=== PATIENT | male | born 1985 | race American Indian/Alaskan Native ===

== ENCOUNTER 2019-03-12 10:00 | Observation (INO) | payer SELFPAY ==
[2019-03-12 11:07] LABS: Bilirubin,Urine NEG (Negative); Blood,Urine NEG (Negative); Color,Urine Yellow (Yellow); Mucus,Urine FEW /HPF
[2019-03-12] MEDS ORDERED: ZOFRAN IV ONE (11:14)
[2019-03-12] MEDS ORDERED: SUBLIMAZE IV ONE ×2 (11:14→13:55)
--- NOTE | 2019-03-12 11:19 | Emergency Department Report ---
HPI - General Chief Complaint: Abdominal Pain Time Seen by Provider: 03/12/19 11:04 - [facility] HPI: Room 8 The patient is a 34-year-old male presenting with a chief complaint abdominal pain and needing alcohol detox. Patient states yesterday he began having symptoms he believes are secondary to alcohol withdrawal which include lower abdominal pain, itchy, chest pain, nausea and vomiting. Patient states his abdominal pain is constant. Patient admits to nausea and vomiting but denies diarrhea. Patient states he's had excessive flatus and a subjective fever. Patient currently gives his abdominal pain score 10/10 Location: [See above] Duration: [See above] Quality: [See above] Severity: [See above] Modifying factors: [see above] Context: [see above] Mode of transportation: [not driving] ED Past Medical Hx - Past Medical History Previous Medical History?: Yes Hx Hypertension: Yes Hx HIV: Yes (last CD4 count normal summer 2018) - Surgical History Past Surgical History?: Yes Additional Surgical History: colostomy with reversal secondary to "polyps" per patient - Family History Family history: no significant - Social History Smoking Status: Current Some Day Smoker (rarely) Substance Use Type: Alcohol (bottle of vodka daily), Methamphetamines ED Review of Systems ROS: Stated complaint: ALCOHOL DETOX Other details as noted in HPI Constitutional: fever (subjective) Eyes: other (itchy eyes) ENT: denies: throat pain Respiratory: no symptoms reported Cardiovascular: chest pain Endocrine: no symptoms reported Gastrointestinal: abdominal pain, nausea, vomiting. denies: diarrhea Genitourinary: denies: dysuria Musculoskeletal: denies: back pain Neurological: denies: headache Physical Exam - Physical Exam Vital Signs: Vital Signs 03/12/19 10:14 Temperature 98.1 F Pulse Rate 73 Respiratory 16 Rate Blood Pressure 146/103 Blood Pressure 143/103 [Left] O2 Sat by Pulse 97 Oximetry Physical Exam: GENERAL: The patient is well-developed well-nourished male lying on stretcher using cell phone appeared to be in acute distress. [] HEENT: Normocephalic. Atraumatic. Extraocular motions are intact. Patient has moist mucous membranes. NECK: Supple. No meningitic signs are noted. Trachea midline CHEST/LUNGS: Clear to auscultation. There is no respiratory distress noted. HEART/CARDIOVASCULAR: Regular. There is no tachycardia. There is no gallop rub or murmur. ABDOMEN: Abdomen is soft, with discomfort to palpation in the left upper quadrant, right upper quadrant and right lower quadrant. Patient has normal bowel sounds. There is no abdominal distention. SKIN: There is no rash. There is no edema. There is no diaphoresis. NEURO: The patient is awake, alert, and oriented. The patient is cooperative. The patient has no focal neurologic deficits. The patient has normal speech MUSCULOSKELETAL: There is no evidence of acute injury. ED Course Vital Signs 03/12/19 10:14 Temperature 98.1 F Pulse Rate 73 Respiratory 16 Rate Blood Pressure 146/103 Blood Pressure 143/103 [Left] O2 Sat by Pulse 97 Oximetry ED Medical Decision Making - Lab Data Result diagrams: 03/12/19 10:36 03/12/19 10:36 Laboratory Tests 03/12/19 03/12/19 03/12/19 10:36 10:36 10:56 WBC 3.2 L RBC 4.64 Hgb 14.2 Hct 43.9 MCV 95 H MCH 31 MCHC 32 RDW 17.0 H Plt Count 188 Lymph % (Auto) [place] Operator Add Manual Diff Complete Total Counted 100 Seg Neutrophils % [place] Operator Seg Neuts % (Manual) 23.0 L Band Neutrophils % 0 Lymphocytes % (Manual) 71.0 H Reactive Lymphs % (Man) 2.0 Monocytes % (Manual) 3.0 Eosinophils % (Manual) 0 Basophils % (Manual) 1.0 Metamyelocytes % 0 Myelocytes % 0 Promyelocytes % 0 Blast Cells % 0 Nucleated RBC % Not Reportable Seg Neutrophils # Man 0.7 L Band Neutrophils # 0.0 Lymphocytes # (Manual) 2.3 Abs React Lymphs (Man) 0.1 Monocytes # (Manual) 0.1 Eosinophils # (Manual) 0.0 Basophils # (Manual) 0.0 Metamyelocytes # 0.0 Myelocytes # 0.0 Promyelocytes # 0.0 Blast Cells # 0.0 WBC Morphology Not Reportable Hypersegmented Neuts Not Reportable Hyposegmented Neuts Not Reportable Hypogranular Neuts Not Reportable Smudge Cells Not Reportable Toxic Granulation Not Reportable Toxic Vacuolation Not Reportable Dohle Bodies Not Reportable Pelger-Huet Anomaly Not Reportable Justin Rods Not Reportable Platelet Estimate Consistent w auto Clumped Platelets Not Reportable Plt Clumps, EDTA Not Reportable Large Platelets Not Reportable Giant Platelets Not Reportable Platelet Satelliting Not Reportable Plt Morphology Comment Not Reportable RBC Morphology Not Reportable Dimorphic RBCs Not Reportable Polychromasia Not Reportable Hypochromasia Few Poikilocytosis Not Reportable Anisocytosis Not Reportable Microcytosis Not Reportable Macrocytosis Not Reportable Spherocytes Not Reportable Pappenheimer Bodies Not Reportable Sickle Cells Not Reportable Target Cells 1+ Tear Drop Cells Not Reportable Ovalocytes Not Reportable Helmet Cells Not Reportable Thompson-[place] Bodies Not Reportable [place] Rings Not Reportable Ensign Cells Not Reportable Bite Cells Not Reportable Crenated Cell Not Reportable Elliptocytes Not Reportable Acanthocytes (Spur) Not Reportable Rouleaux Not Reportable Hemoglobin C Crystals Not Reportable Schistocytes Not Reportable Malaria parasites Not Reportable Brandyn Bodies Not Reportable Hem Pathologist Commnt No Sodium 141 Potassium 4.5 Chloride 101.9 Carbon Dioxide 24 Anion Gap 20 BUN 5 L Creatinine 0.9 Estimated GFR > 60 BUN/Creatinine Ratio 6 Glucose 95 Calcium 8.7 Total Bilirubin 0.40 AST 201 H ALT 87 H Alkaline Phosphatase 71 Total Creatine Kinase CK-MB (CK-2) CK-MB (CK-2) Rel Index Troponin T Total Protein 8.1 Albumin 3.8 L Albumin/Globulin Ratio 0.9 Lipase Urine Color Yellow Urine Turbidity Clear Urine pH 6.0 Ur Specific [place] 1.016 Urine Protein 100 mg/dl Urine Glucose (UA) Neg Urine Ketones Neg Urine Blood Neg Urine Nitrite Neg Urine Bilirubin Neg Urine Urobilinogen 4.0 Ur Leukocyte Esterase Neg Urine WBC (Auto) 2.0 Urine RBC (Auto) 2.0 U Epithel Cells (Auto) < 1.0 Urine Mucus Few Plasma/Serum Alcohol 03/12/19 03/12/19 03/12/19 11:07 11:07 11:21 WBC RBC Hgb Hct MCV MCH MCHC RDW Plt Count Lymph % (Auto) Add Manual Diff Total Counted Seg Neutrophils % Seg Neuts % (Manual) Band Neutrophils % Lymphocytes % (Manual) Reactive Lymphs % (Man) Monocytes % (Manual) Eosinophils % (Manual) Basophils % (Manual) Metamyelocytes % Myelocytes % Promyelocytes % Blast Cells % Nucleated RBC % Seg Neutrophils # Man Band Neutrophils # Lymphocytes # (Manual) Abs React Lymphs (Man) Monocytes # (Manual) Eosinophils # (Manual) Basophils # (Manual) Metamyelocytes # Myelocytes # Promyelocytes # Blast Cells # WBC Morphology Hypersegmented Neuts Hyposegmented Neuts Hypogranular Neuts Smudge Cells Toxic Granulation Toxic Vacuolation Dohle Bodies Pelger-Huet Anomaly Justin Rods Platelet Estimate Clumped Platelets Plt Clumps, EDTA Large Platelets Giant Platelets Platelet Satelliting Plt Morphology Comment RBC Morphology Dimorphic RBCs Polychromasia Hypochromasia Poikilocytosis Anisocytosis Microcytosis Macrocytosis Spherocytes Pappenheimer Bodies Sickle Cells Target Cells Tear Drop Cells Ovalocytes Helmet Cells Thompson-White[place] Bodies [place] Rings Karel Cells Bite Cells Crenated Cell Elliptocytes Acanthocytes (Spur) Rouleaux Hemoglobin C Crystals Schistocytes Malaria parasites Brandyn Bodies Hem Pathologist Commnt Sodium Potassium Chloride Carbon Dioxide Anion Gap BUN Creatinine Estimated GFR BUN/Creatinine Ratio Glucose Calcium Total Bilirubin AST ALT Alkaline Phosphatase Total Creatine Kinase 465 H CK-MB (CK-2) 3.1 CK-MB (CK-2) Rel Index 0.6 Troponin T < 0.010 Total Protein Albumin Albumin/Globulin Ratio Lipase 106 H Urine Color Urine Turbidity Urine pH Ur Specific [place] Urine Protein Urine Glucose (UA) Urine Ketones Urine Blood Urine Nitrite Urine Bilirubin Urine Urobilinogen Ur Leukocyte Esterase Urine WBC (Auto) Urine RBC (Auto) U Epithel Cells (Auto) Urine Mucus Plasma/Serum Alcohol 0.38 H - EKG Data -: EKG Interpreted by Ct EKG shows normal: sinus rhythm Rate: normal - EKG Data When compared to previous EKG there are: previous EKG unavailable Interpretation: other (no ischemic changes seen) - Radiology Data Radiology results: report reviewed (CT abdomen and pelvis), image reviewed (CT abdomen and pelvis) [address] [address] Cat Scan Report Signed Patient: SANNA CRUM MR#: [id number] : 1985 Acct:[id number] Age/Sex: 34 / M ADM Date: 03/12/19 Loc: ED Attending Dr: Ordering Physician: RICARDO VANESSA MD Date of Service: 03/12/19 Procedure(s): CT abdomen pelvis w con Accession Number(s): [id number] cc: RICARDO VANESSA MD PROCEDURE: CT ABDOMEN PELVIS W CON TECHNIQUE: Computerized axial tomography of the abdomen and pelvis was performed after the administration of IV iodinated nonionic contrast. HISTORY: lower abdominal pain nausea vomiting COMPARISONS: None . FINDINGS: Lower Lung rodriguez: Minimal dependent atelectasis otherwise clear. Upper Abdomen: Low-density diffusely decreased consistent with fatty infiltration. No discrete liver lesions are identified. The gallbladder showed no adenopathy. The adrenal glands, pancreas and spleen are unremarkable. Kidneys, Ureters and Urinary bladder: No abnormalities are seen. Retroperitoneum: Abdominal aorta appears normal. Nonspecific subcentimeter lymph nodes are seen in the retroperitoneum. No pathologically enlarged lymph nodes are identified. Bowel: No focal abnormalities are seen. No evidence of bowel obstruction, ascites or free intraperitoneal gas. The appendix is not clearly identified. There is no inflammatory changes seen in the right lower quadrant suggest appendicitis. The cecum projects into the lower pelvis, normal variant. Reproductive organs: Prostate gland does not appear to be enlarged. Other: No acute bone abnormalities are identified. IMPRESSION: Fatty infiltration of the liver. No acute abnormalities are identified. This document is electronically signed by Vernon Sol MD., March 12 2019 02:27:01 PM ET Transcribed By: DFN Dictated By: VERNON SOL MD Electronically Authenticated By: VERNON SOL MD Signed Date/Time: 03/12/19 1429 DD/ 1326 TD/TT: 03/12/19 1326 - Differential Diagnosis gastritis, pancreatitis, GERD Critical care attestation.: If time is entered above; I have spent that time in minutes in the direct care of this critically ill patient, excluding procedure time. ED Disposition Clinical Impression: Acute pancreatitis, Acute abdominal pain, Chest pain, Alcohol abuse Disposition: OP ADMIT IP TO THIS HOSP Is pt being admited?: Yes Does the pt Need Aspirin: Yes Condition: Fair Instructions: Chest Pain (ED) Referrals: KEISHA LAWTON MD [Primary Care Provider] - 3-5 Days Time of Disposition: 15:10 (hospitalist paged (Dr Riddle))
[2019-03-12 11:22] LABS: Hematocrit 43.9 % (35.5-45.6); Hemoglobin 14.2 gm/dl (11.8-15.2); Mean Corpuscular HGB Conc 32 % (32-34); Mean Corpuscular Volume 95 fl (84-94); Platelet Count 188 K/mm3 (140-440); Red Blood Count 4.64 M/mm3 (3.65-5.03)
[2019-03-12 12:24] LABS: Creatine Kinase MB 3.1 ng/mL (0.0-4.0)
[2019-03-12 12:46] LABS: Alanine Aminotransferase 87 units/L (7-56); Albumin 3.8 g/dL (3.9-5); BUN/Creatinine Ratio 6; Blood Urea Nitrogen 5 mg/dL (9-20); Calcium 8.7 mg/dL (8.4-10.2); Hemolysis Index 89
[2019-03-12] MEDS ORDERED: MAGNESIUM SULFATE 2GM/50ML 2 GM/50 ML BAG IV ONE (13:23)
[2019-03-12 13:44] LABS: Eosinophils % (Manual) 0 % (0.0-4.3); Total Cells Counted 100
[2019-03-12 13:45] LABS: Hypochromasia Few; Target Cells 1+
[2019-03-12 13:46] LABS: Platelet Estimate Consistent w Auto
[2019-03-12] MEDS ORDERED: MORPHINE IV ONE (13:55)
[2019-03-12] MEDS ORDERED: MORPHINE ONE (13:59)
[2019-03-12] MEDS ORDERED: VITAMIN B-1 100 MG, FOLVITE 1 MG, INFUVITE 10 ML in NACL 0.9% 1000 ML 1,000 ML IV ONE (14:00)
--- NOTE | 2019-03-12 14:29 | Cat Scan Report ---
PROCEDURE: CT ABDOMEN PELVIS W CON TECHNIQUE: Computerized axial tomography of the abdomen and pelvis was performed after the administr ation of IV iodinated nonionic contrast. HISTORY: lower abdominal pain nausea vomiting COMPARISONS: None . FINDINGS: Lower Lung rodriguez: Minimal dependent atelectasis otherwise clear. Upper Abdomen: Low-density diffusely decreased consistent with fatty infiltration. No discrete liver lesions are identified. The gallbladder showed no adenopathy. The adrenal glands, pancreas and splee n are unremarkable. Kidneys, Ureters and Urinary bladder: No abnormalities are seen. Retroperitoneum: Abdominal aorta appears normal. Nonspecific subcentimeter lymph nodes are seen in the retroperitoneum. No pathologically enlarged ly mph nodes are identified. Bowel: No focal abnormalities are seen. No evidence of bowel obstruction, ascites or free intraperit henry gas. The appendix is not clearly identified. There is no inflammatory changes seen in the right lower quadrant suggest appendicitis. The cecum projects into the lower pelvis, normal variant. Reproductive organs: Prostate gland does not appear to be enlarged. Other: No acute bone abnormalities are identified. IMPRESSION: Fatty infiltration of the liver. No acute abnormalities are identified. This document is electronically signed by Vernon Dahl MD., March 12 2019 02:27:01 PM ET
[2019-03-12] MEDS ORDERED: REGLAN IV ONE (14:45)
[2019-03-12] MEDS ORDERED: REGLAN ONE (14:48)
--- NOTE | 2019-03-12 15:53 | Event Note ---
Date: 03/12/19 34 YO Male presents to ED for evaluation. Pt found to have ETOH Intoxication without delirium or symptoms of withdrawl. Pt resting comfortably. Pt does not meet criteria for admission. Pt treated with IVF resuscitation therapy, Thiamine, Folic Acid, Multivitamin. Pt discharged home and instructed to f/u pcp 3-5 days, and to attend AA meeting at discharge. ETOH Cessation counseling:+15minutes GENERAL: The patient is well-developed well-nourished male lying on stretcher using cell phone appeared to be in no acute distress. [] HEENT: Normocephalic. Atraumatic. Extraocular motions are intact. PERRL, EOMI Patient has moist mucous membranes. NECK: Supple. No meningitic signs are noted. Trachea midline CHEST/LUNGS: Clear to auscultation. There is no respiratory distress noted. HEART/CARDIOVASCULAR: Regular. There is no tachycardia. There is no gallop rub or murmur. ABDOMEN: Abdomen is soft, NT, ND, NO rebound, No Guarding. Patient has normal bowel sounds. There is no abdominal distention. SKIN: There is no rash. There is no edema. There is no diaphoresis. NEURO: The patient is awake, alert, and oriented. The patient is cooperative. The patient has no focal neurologic deficits. The patient has normal speech MUSCULOSKELETAL: There is no evidence of acute injury.
[2019-03-12] MEDS ORDERED: NACL 0.9% 1000 ML 3,000 ML IV ONE (16:00)
--- NOTE | 2019-03-12 20:16 | History and Physical Report ---
History of Present Illness Chief complaint: I need detox History of present illness: 34 YO Male with HIV not currently on antiretroviral therapy, HTN, Nicotine Dependence, ETOH Dependence presents to ED for evaluation. Pt states that he has experienced abdominal discomfort, itching, chest discomfort, nausea, and multi ple episodes of vomiting. Pt states that he drinks 1 bottle of vodka daily with his last drink 2 hours prior to presentation. Pt transported to [facility] via private vehicle. Pt seen and evaluated in ED and found to have ETOH intoxication. Pt denies fever, chills, palpitations, CP, productive cough, skin rash, recent ill contacts. Upon further questioning, patient reports that he wants to quit drinking, and wants "Detox". Pt denies auditory/visual hallucinations, syncope, trauma, falls, loss of bowel/bladder continence. UDS pending at time of admission. Pt treated with banana bag, IVF resuscitation therapy with improvement in symptoms. No prior admission for review. Pt Blood alcohol level was .38 initially and decreased to 0.23 with therapy. No medication listed for reconciliation at time of admission. Past History Past Medical History: HIV/AIDS, hypertension, other (ETOH dependence, ) Past Surgical History: No surgical history, Other (reviewed) Social history: smoking, alcohol abuse Family history: no significant family history (reviewed) Medications and Allergies Allergies Allergy/AdvReac Type Severity Reaction Status Date / Time No Known Allergies Allergy Unverified 03/12/19 10:19 Home Medications Medication Instructions Recorded Confirmed Last Taken Type Folic Acid [Folvite] 1 mg PO QDAY #30 tablet 03/12/19 Unknown Rx Multivitamin Tab [Multiple Vitamin 1 each PO QDAY #30 tablet 03/12/19 Unknown Rx TAB (Theragran)] Thiamine [Vitamin B-1] 100 mg PO QDAY #30 tablet 03/12/19 Unknown Rx Review of Systems Constitutional: weakness, no weight loss, no weight gain, no fever, no chills Ears, nose, mouth and throat: no ear pain, no ear discharge, no tinnitis, no decreased hearing, no nose pain Cardiovascular: no chest pain, no orthopnea, no palpitations, no rapid/irregular heart beat, no edema Respiratory: no cough, no cough with sputum, no excessive sputum, no hemoptysis Gastrointestinal: nausea, vomiting, no constipation, no change in bowel habits, no hematemesis, no BRBPR, no melena, no hematochezia Genitourinary Male: no flank pain, no discharge, no urinary frequency Rectal: no pain, no incontinence, no bleeding Musculoskeletal: no neck stiffness, no neck pain, no shooting arm pain, no arm numbness/tingling, no low back pain Integumentary: no rash, no pruritis, no redness, no sores, no wounds, no jaundice Neurological: no paralysis, no weakness, no parathesias, no tingling, no se izures, no syncope Psychiatric: no anxiety, no memory loss, no sleep disturbances, no insomnia, no hypersomnia, no change in appetite Endocrine: no cold intolerance, no heat intolerance, no polyphagia, no excessive thirst, no polydipsia, no polyuria Hematologic/Lymphatic: no easy bruising, no easy bleeding, no lymphadenopathy, no lymphedema Allergic/Immunologic: no persistent infections, no anaphylaxis Exam - Constitutional Vitals: Temp Pulse Resp BP Pulse Ox 98.1 F 89 14 150/86 99 03/12/19 10:14 03/12/19 19:40 03/12/19 19:40 03/12/19 19:40 03/12/19 19:40 General appearance: Present: mild distress - EENT Eyes: Present: PERRL ENT: hearing intact, clear oral mucosa - Neck Neck: Present: supple, normal ROM - Respiratory Respiratory effort: normal Respiratory: bilateral: CTA - Cardiovascular Heart Sounds: Present: S1 & S2. Absent: rub, click - Extremities Extremities: pulses symmetrical, No edema Peripheral Pulses: within normal limits - Abdominal General gastrointestinal: Present: soft, non-tender, non-distended, normal bowel sounds Male genitourinary: Present: normal - Integumentary Integumentary: Present: clear, warm, dry - Musculoskeletal Musculoskeletal: gait normal, strength equal bilaterally - Psychiatric Psychiatric: appropriate mood/affect, intact judgment & insight - Neurologic Neurologic: CNII-XII intact, moves all extremities Results - Labs CBC & Chem 7: 03/12/19 10:36 03/12/19 10:36 Labs: Abnormal lab results 03/12/19 03/12/19 03/12/19 Range/Units 10:36 10:36 11:07 WBC 3.2 L (4.5-11.0) K/mm3 MCV 95 H (84-94) fl RDW 17.0 H (13.2-15.2) % Seg Neuts % (Manual) 23.0 L (40.0-70.0) % Lymphocytes % (Manual) 71.0 H (13.4-35.0) % Seg Neutrophils # Man 0.7 L (1.8-7.7) K/mm3 BUN 5 L (9-20) mg/dL AST 201 H (5-40) units/L ALT 87 H (7-56) units/L Total Creatine Kinase (55-170) units/L Albumin 3.8 L (3.9-5) g/dL Lipase 106 H (13-60) units/L Plasma/Serum Alcohol (0-0.07) % 03/12/19 03/12/19 03/12/19 Range/Units 11:07 11:21 18:00 WBC (4.5-11.0) K/mm3 MCV (84-94) fl RDW (13.2-15.2) % Seg Neuts % (Manual) (40.0-70.0) % Lymphocytes % (Manual) (13.4-35.0) % Seg Neutrophils # Man (1.8-7.7) K/mm3 BUN (9-20) mg/dL AST (5-40) units/L ALT (7-56) units/L Total Creatine Kinase 465 H (55-170) units/L Albumin (3.9-5) g/dL Lipase (13-60) units/L Plasma/Serum Alcohol 0.38 H 0.23 H (0-0.07) % Assessment and Plan - Patient Problems (1) Alcohol intoxication Current Visit: Yes Status: Acute Qualifiers: Complication of substance-induced condition: uncomplicated Qualified Code(s): F10.920 - Alcohol use, unspecified with intoxication, uncomplicated Plan to address problem: IVF resuscitation therapy, CIWA protocol, thiamine, folic acid, multivitamin, banana bag, outpatient AA F/U,magnesium level (2) HIV (human immunodeficiency virus infection) Current Visit: Yes Status: Acute Qualifiers: HIV symptom status: asymptomatic Qualified Code(s): Z21 - Asymptomatic human immunodeficiency virus [HIV] infection status Plan to address problem: outpatient ID F/U. (3) HTN (hypertension) Current Visit: Yes Status: Acute Qualifiers: Hypertension type: essential hypertension Qualified Code(s): I10 - Esse ntial (primary) hypertension Plan to address problem: monitor bp q shift, supportive care. (4) DVT prophylaxis Current Visit: Yes Status: Acute Plan to address problem: SCD to BLE while in bed. prophylactic lovenox.
[2019-03-12] MEDS ORDERED: ZOFRAN IV PRN (20:17)
[2019-03-12] MEDS ORDERED: PROVENTIL IH PRN (20:17)
[2019-03-12] MEDS ORDERED: SODIUM CHLORIDE FLUSH SYRINGE 10 ML IV PRN (20:17)
[2019-03-12] MEDS ORDERED: THERAGRAN Tab PO ONE (20:36)
[2019-03-12] MEDS: ATIVAN IV PRN (21:05)
[2019-03-12] MEDS ORDERED: VITAMIN B-1 PO ONE (21:06)
[2019-03-12] MEDS ORDERED: CARAFATE PO ONE (21:06)
[2019-03-12] MEDS ORDERED: LOVENOX SUB-Q SCH (22:00)
[2019-03-12] MEDS: NACL 0.9% 1000 ML 1,000 ML IV SCH (22:29)
[2019-03-12] MEDS ORDERED: BENADRYL IV ONE (23:50)
[2019-03-13] MEDS: APRESOLINE IV PRN ×2 (06:47→14:16)
[2019-03-13] MEDS: BENADRYL PO PRN ×4 (06:52→22:55)
[2019-03-13] MEDS: ATIVAN IV PRN ×4 (07:47→21:27)
[2019-03-13] MEDS: NACL 0.9% 1000 ML 1,000 ML IV SCH ×2 (07:54→17:27)
[2019-03-13] MEDS ORDERED: FOLVITE PO SCH (10:00)
[2019-03-13] MEDS: SODIUM CHLORIDE FLUSH SYRINGE 10 ML IV SCH ×2 (10:00→21:03)
--- NOTE | 2019-03-13 17:38 | Progress Note ---
Assessment and Plan Assessment and plan: Hematochezia. GI consult for further evaluation. Hemoccult stool. Serial H/H ETOH Abuse/ intoxication. Continue CIWA protocol HIV. Follow up with ID as outpatient Hypertension. Continue antihypertensive medications. History Interval history: No new issues overnight. Pt. c/o hematochezia Hospitalist Physical - Constitutional Vitals: Temp Pulse Resp BP Pulse Ox 98.7 F 121 H 15 152/100 100 03/13/19 16:57 03/13/19 16:57 03/13/19 16:57 03/13/19 16:57 03/13/19 16:57 General appearance: Present: mild distress - EENT Eyes: Present: PERRL, EOM intact ENT: hearing intact, clear oral mucosa, dentition normal - Neck Neck: Present: supple, normal ROM - Respiratory Respiratory effort: normal Respiratory: bilateral: CTA - Cardiovascular Rhythm: regular Heart Sounds: Present: S1 & S2. Absent: gallop, rub - Extremities Extremities: no ischemia, No edema, Full ROM - Abdominal General gastrointestinal: soft, non-tender, non-distended, normal bowel sounds - Integumentary Integumentary: Present: clear, warm, dry - Neurologic Neurologic: CNII-XII intact, moves all extremities Results - Labs CBC & Chem 7: 03/12/19 10:36 03/12/19 10:36 Labs: Laboratory Last Values WBC 3.2 K/mm3 (4.5-11.0) L 03/12/19 10:36 RBC 4.64 M/mm3 (3.65-5.03) 03/12/19 10:36 Hgb 14.2 gm/dl (11.8-15.2) 03/12/19 10:36 Hct 43.9 % (35.5-45.6) 03/12/19 10:36 MCV 95 fl (84-94) H 03/12/19 10:36 MCH 31 pg (28-32) 03/12/19 10:36 MCHC 32 % (32-34) 03/12/19 10:36 RDW 17.0 % (13.2-15.2) H 03/12/19 10:36 Plt Count 188 K/mm3 (140-440) 03/12/19 10:36 Lymph % (Auto) Emt Driver 03/12/19 10:36 Add Manual Diff Complete 03/12/19 10:36 Total Counted 100 03/12/19 10:36 Seg Neutrophils % Emt Driver 03/12/19 10:36 Seg Neuts % (Manual) 23.0 % (40.0-70.0) L 03/12/19 10:36 0 % 03/12/19 10:36 71.0 % (13.4-35.0) H 03/12/19 10:36 Reactive Lymphs % (Man) 2.0 % 03/12/19 10:36 3.0 % (0.0-7.3) 03/12/19 10:36 0 % (0.0-4.3) 03/12/19 10:36 1.0 % (0.0-1.8) 03/12/19 10:36 0 % 03/12/19 10:36 0 % 03/12/19 10:36 0 % 03/12/19 10:36 0 % 03/12/19 10:36 Nucleated RBC % Not Reportable 03/12/19 10:36 Seg Neutrophils # Man 0.7 K/mm3 (1.8-7.7) L 03/12/19 10:36 Band Neutrophils # 0.0 K/mm3 03/12/19 10:36 2.3 K/mm3 (1.2-5.4) 03/12/19 10:36 Abs React Lymphs (Man) 0.1 K/mm3 03/12/19 10:36 0.1 K/mm3 (0.0-0.8) 03/12/19 10:36 0.0 K/mm3 (0.0-0.4) 03/12/19 10:36 0.0 K/mm3 (0.0-0.1) 03/12/19 10:36 0.0 K/mm3 03/12/19 10:36 0.0 K/mm3 03/12/19 10:36 0.0 K/mm3 03/12/19 10:36 Blast Cells # 0.0 K/mm3 03/12/19 10:36 WBC Morphology Not Reportable 03/12/19 10:36 Hypersegmented Neuts Not Reportable 03/12/19 10:36 Hyposegmented Neuts Not Reportable 03/12/19 10:36 Hypogranular Neuts Not Reportable 03/12/19 10:36 Not Reportable 03/12/19 10:36 Not Reportable 03/12/19 10:36 Not Reportable 03/12/19 10:36 Not Reportable 03/12/19 10:36 Not Reportable 03/12/19 10:36 Not Reportable 03/12/19 10:36 Consistent w auto 03/12/19 10:36 Not Reportable 03/12/19 10:36 Plt Clumps, EDTA Not Reportable 03/12/19 10:36 Not Reportable 03/12/19 10:36 Not Reportable 03/12/19 10:36 Not Reportable 03/12/19 10:36 Plt Morphology Comment Not Reportable 03/12/19 10:36 RBC Morphology Not Reportable 03/12/19 10:36 Dimorphic RBCs Not Reportable 03/12/19 10:36 Not Reportable 03/12/19 10:36 Few 03/12/19 10:36 Not Reportable 03/12/19 10:36 Not Reportable 03/12/19 10:36 Not Reportable 03/12/19 10:36 Not Reportable 03/12/19 10:36 Not Reportable 03/12/19 10:36 Not Reportable 03/12/19 10:36 Not Reportable 03/12/19 10:36 1+ 03/12/19 10:36 Not Reportable 03/12/19 10:36 Not Reportable 03/12/19 10:36 Not Reportable 03/12/19 10:36 Not Reportable 03/12/19 10:36 Not Reportable 03/12/19 10:36 Not Reportable 03/12/19 10:36 Not Reportable 03/12/19 10:36 Not Reportable 03/12/19 10:36 Not Reportable 03/12/19 10:36 Acanthocytes (Spur) Not Reportable 03/12/19 10:36 Rouleaux Not Reportable 03/12/19 10:36 Not Reportable 03/12/19 10:36 Not Reportable 03/12/19 10:36 Not Reportable 03/12/19 10:36 Not Reportable 03/12/19 10:36 Hem Pathologist Commnt No 03/12/19 10:36 Sodium 141 mmol/L (137-145) 03/12/19 10:36 Potassium 4.5 mmol/L (3.6-5.0) 03/12/19 10:36 Chloride 101.9 mmol/L (98-107) 03/12/19 10:36 Carbon Dioxide 24 mmol/L (22-30) 03/12/19 10:36 20 mmol/L 03/12/19 10:36 BUN 5 mg/dL (9-20) L 03/12/19 10:36 0.9 mg/dL (0.8-1.5) 03/12/19 10:36 Estimated GFR > 60 ml/min 03/12/19 10:36 6 % 03/12/19 10:36 Glucose 95 mg/dL (75-100) 03/12/19 10:36 Calcium 8.7 mg/dL (8.4-10.2) 03/12/19 10:36 Magnesium 1.60 mg/dL (1.7-2.3) L 03/12/19 18:00 0.40 mg/dL (0.1-1.2) 03/12/19 10:36 AST 201 units/L (5-40) H 03/12/19 10:36 ALT 87 units/L (7-56) H 03/12/19 10:36 71 units/L (35-129) 03/12/19 10:36 465 units/L (55-170) H 03/12/19 11:21 CK-MB (CK-2) 3.1 ng/mL (0.0-4.0) 03/12/19 11:21 CK-MB (CK-2) Rel Index 0.6 (0-4) 03/12/19 11:21 < 0.010 ng/mL (0.00-0.029) 03/12/19 11:21 8.1 g/dL (6.3-8.2) 03/12/19 10:36 3.8 g/dL (3.9-5) L 03/12/19 10:36 0.9 % 03/12/19 10:36 106 units/L (13-60) H 03/12/19 11:07 Yellow (Yellow) 03/12/19 10:56 Clear (Clear) 03/12/19 10:56 6.0 (5.0-7.0) 03/12/19 10:56 Ur Specific [place] 1.016 (1.003-1.030) 03/12/19 10:56 100 mg/dl mg/dL (Negative) 03/12/19 10:56 Neg mg/dL (Negative) 03/12/19 10:56 Neg mg/dL (Negative) 03/12/19 10:56 Neg (Negative) 03/12/19 10:56 Neg (Negative) 03/12/19 10:56 Neg (Negative) 03/12/19 10:56 4.0 mg/dL (<2.0) 03/12/19 10:56 Ur Leukocyte Esterase Neg (Negative) 03/12/19 10:56 2.0 /HPF (0.0-6.0) 03/12/19 10:56 2.0 /HPF (0.0-6.0) 03/12/19 10:56 U Epithel Cells (Auto) < 1.0 /HPF (0-13.0) 03/12/19 10:56 Few /HPF 03/12/19 10:56 Plasma/Serum Alcohol < 0.01 % (0-0.07) 03/13/19 08:42 Active Medications - Current Medications Current Medications: Generic Name Dose Route Start Last Admin Trade Name Freq PRN Reason Stop Dose Admin Albuterol 2.5 mg 03/12/19 20:17 Proventil IH Q4HRT PRN Shortness Of Breath Diphenhydramine HCl 25 mg 03/12/19 23:42 03/13/19 17:26 Benadryl PO 25 mg Q6H PRN Administration Itching Enoxaparin Sodium 40 mg 03/12/19 22:00 Lovenox SUB-Q QDAY@2200 JD Folic Acid 1 mg 03/13/19 10:00 03/13/19 10:30 Folvite PO 1 mg QDAY JD Administration Hydralazine HCl 10 mg 03/13/19 06:04 03/13/19 14:16 Apresoline IV 10 mg Q4H PRN Administration Blood Pressure Sodium Chloride 1,000 mls @ 125 mls/hr 03/12/19 21:00 03/13/19 17:27 Nacl 0.9% 1000 Ml IV 03/15/19 04:59 125 mls/hr DIRECT JD Administration Lorazepam 2 mg 03/12/19 20:18 03/13/19 17:20 Ativan IV 2 mg Q1HR PRN Administration JESSIE-Froy 8-15 Ondansetron HCl 4 mg 03/12/19 20:17 03/12/19 21:05 Zofran IV 4 mg Q8H PRN Administration Nausea And Vomiting Sodium Chloride 10 ml 03/12/19 22:00 03/13/19 10:00 Sodium Chloride Flush Syringe 10 Ml IV 10 ml BID JD Administration Sodium Chloride 10 ml 03/12/19 20:17 Sodium Chloride Flush Syringe 10 Ml IV PRN PRN LINE FLUSH
[2019-03-13 20:37] LABS: Amphetamine Screen,Urine PRESUMPTIVE NEGATIVE; Benzodiazepines Screen,Urine PRESUMPTIVE NEGATIVE; Cannabinoid Screen,Urine PRESUMPTIVE NEGATIVE; Cocaine Screen,Urine PRESUMPTIVE NEGATIVE; Methadone Screen,Urine PRESUMPTIVE NEGATIVE; Opiate Screen,Urine PRESUMPTIVE NEGATIVE
[2019-03-14] MEDS: ATIVAN IV PRN (00:27)
[2019-03-14] MEDS ORDERED: HALDOL IM PRN ×2 (02:47→03:28)
[2019-03-14 06:46] VITALS: BP 143/101
--- NOTE | 2019-03-14 09:04 | Discharge Summary ---
Providers - Providers Date of Admission: 03/12/19 20:17 Date of discharge: 03/14/19 Attending physician: VIVEK DIEHL MD 03/13/19 18:37 Consult to Physician [CONS] Routine Comment: Consulting Provider: EZEKIEL CHRISTOPHER Physician Instructions: Reason For Exam: hematochezia [facility] Reason for admission: alcohol abuse, hematochezia Condition: Fair Hospital course: 34 YO Male with HIV not currently on antiretroviral therapy, HTN, Nicotine Dependence, ETOH Dependence presents to ED for evaluation. Pt states that he has experienced abdominal discomfort, itching, chest discomfort, nausea, and multiple episodes of vomiting. Pt states that he drinks 1 bottle of vodka daily with his last drink 2 hours prior to presentation. Pt transported to [facility] via private vehicle. Pt seen and evaluated in ED and found to have ETOH intoxication. Upon further questioning, patient reports that he wants to quit drinking, and wants "Detox". Pt treated with banana bag, IVF resuscitation therapy with improvement in symptoms. Patient was admitted to the floor was treated for alcohol abuse, GI was consulted for further evaluation but patient sign AMA before seen by GI. This morning the patient said his feeling well, no hallucination or delusion. Discussed with the patient and said he is not happy in the hospital and wants to sign AMA. Patient was alert and oriented. Discussed with his mom and said she will come and pick him up Disposition: [id number] LEFT AGAINST MED ADVICE Time spent for discharge: 32 minutes - Discharge Diagnoses (1) Acute abdominal pain Status: Acute (2) Alcohol abuse Status: Acute Core Measure Documentation - Palliative Care Palliative Care/ Comfort Measures: Not Applicable - Core Measures Any of the following diagnoses?: none Exam - Physical Exam Narrative exam: patient was not interested to have PE. - Constitutional Vitals: Temp Pulse Resp BP Pulse Ox 98.6 F 89 20 143/101 98 03/14/19 06:29 03/14/19 06:29 03/14/19 06:29 03/14/19 06:29 03/14/19 06:29 Plan Activity: other (AMA) Weight Bearing Status: Full Weight Bearing Diet: other (AMA) Follow up with: KEISHA LAWTON MD [Primary Care Provider] - 3-5 Days Prescriptions: Folic Acid [Folvite] 1 mg PO QDAY #30 tablet Multivitamin Tab [Multiple Vitamin TAB (Theragran)] 1 each PO QDAY #30 tablet Thiamine [Vitamin B-1] 100 mg PO QDAY #30 tablet
== END 2019-03-14 09:30 | disposition left against medical advice (07) ==
LOC: ED 10:00 → 3A 20:17
PROVIDERS: ADMIT Internal Medicine; ATTEND Internal Medicine
DX: F10.129 Alcohol abuse with intoxication, unspecified (principal); I10 Essential (primary) hypertension; B20 Human immunodeficiency virus [HIV] disease; R11.2 Nausea with vomiting, unspecified; K92.1 Melena; R10.9 Unspecified abdominal pain; F17.200 Nicotine dependence, unspecified, uncomplicated; Z98.890 Other specified postprocedural states; Z79.899 Other long term (current) drug therapy
CPT/HCPCS: 36415; 74177; 80053; 80307; 81001; 82550; 82553; 83690; 83735; 84484; 85007; 85025; 87116; 93005; 93010; 96361; 96365; 96366; 96367; 96375; 96376; 99284; G0378; G0480; J0360; J1200; J2060; J2270; J2405; J2765; J3010; J3411; J3475; J7030; Q9967; 80320; J1630